=== PATIENT | female | born 1970 | race Caucasian/White ===

== ENCOUNTER 2016-07-27 19:26 | Emergency (ER) | payer SELFPAY ==
[2016-07-27] MEDS ORDERED: ASPIRIN 81 MG TABLET, CHEWABLE PO ONE (20:46)
[2016-07-27] MEDS ORDERED: ASPIRIN 81 MG TABLET, CHEWABLE ONE (20:48)
--- NOTE | 2016-07-27 20:49 | ER Document Report ---
ED Medical Screen (RME) - General Chief Complaint: Chest Pain > 30 Stated Complaint: CHEST PAIN Notes: 46-year-old female, intermittent sharp chest pain with no radiation in the center of her chest, symptoms been going on for days, no current symptoms, family history but no personal history of cardiac disease, nonsmoker. Past history of hypothyroidism, anxiety, hypertension. Postmenopausal reportedly. TRAVEL OUTSIDE OF THE [place] IN LAST 30 DAYS: No - Related Data Allergies/Adverse Reactions: citalopram Allergy (Verified 05/27/16 09:59) Home Medications: Current Home Medications Propranolol HCl [Inderal 20 mg Tablet] 20 mg PO DAILY 07/27/16 [History] Past Medical History Renal/ Medical History: Denies: Hx Peritoneal Dialysis Past Surgical History: Reports: Hx Kidney (Renal Surgery) - tumor - Immunizations Hx Diphtheria, Pertussis, Tetanus Vaccination: Yes Physical Exam - Vital signs Vitals: Temp Pulse Resp BP Pulse Ox 98.5 F 84 18 197/105 H 99 07/27/16 20:41 07/27/16 20:41 07/27/16 20:41 07/27/16 20:41 07/27/16 20:41 - Respiratory Chest status: Tender - Tender to anterior chest wall over the left sternal border - Cardiovascular Rhythm: Regular. No: Tachycardia Heart sounds: Normal auscultation, S1 appreciated, S2 appreciated Course - Vital Signs Vital signs: Temp Pulse Resp BP Pulse Ox 98.5 F 84 18 197/105 H 99 07/27/16 20:41 07/27/16 20:41 07/27/16 20:41 07/27/16 20:41 07/27/16 20:41
[2016-07-27 21:44] LABS: ABSOLUTE EOSINOPHILS # (AUTO) 0.1 10^3/uL (0.0-0.6); ABSOLUTE LYMPHOCYTES (AUTO) 2.8 10^3/uL (0.5-4.7); ABSOLUTE MONOCYTES (AUTO) 0.9 10^3/uL (0.1-1.4); ABSOLUTE NEUT (AUTO) 3.6 10^3/uL (1.7-8.2); BASOPHILS % (AUTO) 0.6 % (0-2); EOSINOPHILS % (AUTO) 1.8 % (0-6); HEMATOCRIT 39.2 % (36.0-47.0); HEMOGLOBIN 13.3 g/dL (12.0-15.5); HGB HCT DIFFERENCE 0.7; LYMPHOCYTES % (AUTO) 37.3 % (13-45); MEAN CORPUSCULAR HEMOGLOBIN 28.8 pg (27.0-33.4); MEAN CORPUSCULAR VOLUME 85 fl (80-97); MONOCYTES % (AUTO) 11.6 % (3-13); RED BLOOD COUNT 4.64 10^6/uL (3.72-5.28); RED CELL DISTRIBUTION WIDTH 13.2 % (11.5-14.0); SEGMENTED NEUTROPHILS % (AUTO) 48.7 % (42-78); WHITE BLOOD COUNT 7.5 10^3/uL (4.0-10.5)
[2016-07-27 22:05] LABS: ALANINE AMINOTRANSFERASE 43 U/L (9-52); ALBUMIN 4.9 g/dL (3.5-5.0); ALKALINE PHOSPHATASE 59 U/L (38-126); ANION GAP 12 (5-19); ASPARTATE AMINO TRANSFERASE 35 U/L (14-36); BILIRUBIN,TOTAL 0.6 mg/dL (0.2-1.3); BLOOD UREA NITROGEN 18 mg/dL (7-20); CALCIUM 9.5 mg/dL (8.4-10.2); CARBON DIOXIDE 28 mmol/L (22-30); CHLORIDE 104 mmol/L (98-107); CREATINE KINASE 79 U/L (30-135); CREATININE RESULT 0.76 mg/dL (0.52-1.25); GLUCOSE 81 mg/dL (75-110); POTASSIUM 4.5 mmol/L (3.6-5.0); SODIUM 144.3 mmol/L (137-145); TOTAL PROTEIN 7.6 g/dL (6.3-8.2)
[2016-07-27 22:15] LABS: CREATINE KINASE MB 0.57 ng/mL (<4.55); TROPONIN I < 0.012 ng/mL
--- NOTE | 2016-07-28 02:49 | ER Document Report ---
ED General - General Chief Complaint: Chest Pain > 30 Stated Complaint: CHEST PAIN Time seen by provider: 02:40 Notes: 46-year-old female, intermittent sharp chest pain with no radiation in the center of her chest, symptoms been going on for days, no current symptoms, family history but no personal history of cardiac disease, nonsmoker. Past history of hypothyroidism, anxiety, hypertension. Postmenopausal reportedly. TRAVEL OUTSIDE OF THE [place] IN LAST 30 DAYS: No - Related Data Allergies/Adverse Reactions: citalopram Allergy (Verified 05/27/16 09:59) Home Medications: Current Home Medications Propranolol HCl [Inderal 20 mg Tablet] 20 mg PO DAILY 07/27/16 [History] Past Medical History - General Information source: Patient - Social History Smoking Status: Never Smoker Frequency of alcohol use: None Drug Abuse: None Lives with: Family Family History: Reviewed & Not Pertinent Patient has suicidal ideation: No Patient has homicidal ideation: No Renal/ Medical History: Denies: Hx Peritoneal Dialysis Past Surgical History: Reports: Hx Kidney (Renal Surgery) - tumor - Immunizations Hx Diphtheria, Pertussis, Tetanus Vaccination: Yes Review of Systems - Review of Systems Constitutional: No symptoms reported EENT: No symptoms reported Cardiovascular: See HPI Respiratory: No symptoms reported Gastrointestinal: No symptoms reported Genitourinary: No symptoms reported Female Genitourinary: No symptoms reported Musculoskeletal: See HPI Skin: No symptoms reported Hematologic/Lymphatic: No symptoms reported Neurological/Psychological: No symptoms reported Physical Exam - Vital signs Vitals: Temp Pulse Resp BP Pulse Ox 98.5 F 84 18 197/105 H 99 07/27/16 20:41 07/27/16 20:41 07/27/16 20:41 07/27/16 20:41 07/27/16 20:41 Course - Re-evaluation Re-evalutation: Patient is very reproducible chest pain in the left sternal border and also anterior chest wall generally. Symptoms have been going on for days. EKG shows borderline left axis deviation, patient's blood pressure is not well- controlled, patient only takes propanolol for this which she started recently about a month ago. Patient will be given lisinopril in addition to this, patient states she has a close follow-up with family care for this to be adjusted. 2 sets of cardiac enzymes are unremarkable, chest x-ray unremarkable , laboratory workup unremarkable, patient asymptomatic on reevaluation except when her chest is pressed on. Discussed follow-up, return precautions. Patient states satisfaction and agreement. - Vital Signs Vital signs: Temp Pulse Resp BP Pulse Ox 97.8 F 78 18 149/102 H 99 07/28/16 03:23 07/28/16 03:23 07/28/16 03:23 07/28/16 03:23 07/28/16 03:23 - Laboratory Result Diagrams: 07/27/16 20:55 07/27/16 20:55 Discharge - Discharge Clinical Impression: Uncontrolled hypertension Chest pain Qualifiers: Chest pain type: unspecified Qualified Code(s): R07.9 - Chest pain, unspecified Condition: Stable Disposition: HOME, SELF-CARE Additional Instructions: Your tender chest wall and your normal workup and ongoing symptoms are reassuring. Apply heat to your chest wall, stay hydrated, consider over-the- counter anti-inflammatories. Please begin the lisinopril prescription, continue your propanolol, please follow-up closely to have your blood pressure reevaluated for further adjustment and treatment. Return to emergency department for any concerning or worsening symptoms. Prescriptions: Lisinopril 10 mg PO DAILY #30 tablet Referrals: [facility] [Primary Care Provider] - Follow up as needed
[2016-07-28 03:25] VITALS: BP 149/102
--- NOTE | 2016-07-28 11:25 | EKG REPORT ---
SEVERITY:- OTHERWISE NORMAL ECG - SINUS RHYTHM BORDERLINE LEFT AXIS DEVIATION : Confirmed by: Marcelino Blankenship 28-Jul-2016 11:24:42
== END 2016-07-28 03:25 | disposition home or self-care (01) ==
LOC: ER 19:26
DX: I10 Essential (primary) hypertension (principal); R07.9 Chest pain, unspecified; Z79.899 Other long term (current) drug therapy
CPT/HCPCS: 36415; 71010; 80053; 82550; 82553; 84484; 85025; 93005; 93010; 99285

== ENCOUNTER → 2016-08-23 | Outpatient (CLI) | payer OTHER ==
[2016-08-23 10:57] LABS: CHOLESTEROL 220.45 mg/dL (0-200); Direct HDL 42 mg/dL (>40); TRIGLYCERIDES 327 mg/dL (<150)
[2016-08-23 11:08] LABS: DIRECT LDL 129 mg/dL (<100)
[2016-08-23 11:13] LABS: VLDL CHOLESTEROL 65.4 mg/dL (10-31)
== END ==
LOC: CCC 09:34
DX: Z00.00 Encounter for general adult medical examination without abnormal findings (principal); I10 Essential (primary) hypertension; E03.9 Hypothyroidism, unspecified
CPT/HCPCS: 36415; 80061; 83036; 84443; 86376

== ENCOUNTER → 2016-08-29 | Outpatient (CLI) | payer OTHER | LOC: RAD 17:30 | DX: M54.5 Low back pain (principal); E06.3 Autoimmune thyroiditis | CPT/HCPCS: 76536 ==

== ENCOUNTER → 2016-08-29 | Outpatient (CLI) | payer OTHER | LOC: OD 12:46 | DX: M54.5 Low back pain (principal); E06.3 Autoimmune thyroiditis | CPT/HCPCS: 72110 ==

== ENCOUNTER → 2016-09-07 | Outpatient (CLI) | payer OTHER | LOC: WI 14:42 | DX: Z12.31 Encounter for screening mammogram for malignant neoplasm of breast (principal) | CPT/HCPCS: 77067; G0202 ==

== ENCOUNTER → 2016-09-12 | Outpatient (CLI) | payer OTHER ==
[2016-09-12 11:53] LABS: ABSOLUTE EOSINOPHILS # (AUTO) 0.2 10^3/uL (0.0-0.6); ABSOLUTE LYMPHOCYTES (AUTO) 1.8 10^3/uL (0.5-4.7); ABSOLUTE MONOCYTES (AUTO) 0.6 10^3/uL (0.1-1.4); ABSOLUTE NEUT (AUTO) 2.9 10^3/uL (1.7-8.2); BASOPHILS % (AUTO) 0.6 % (0-2); EOSINOPHILS % (AUTO) 2.8 % (0-6); HEMATOCRIT 38.6 % (36.0-47.0); HEMOGLOBIN 13.4 g/dL (12.0-15.5); HGB HCT DIFFERENCE 1.6; LYMPHOCYTES % (AUTO) 33.2 % (13-45); MEAN CORPUSCULAR HEMOGLOBIN 29.1 pg (27.0-33.4); MEAN CORPUSCULAR HGB CONC 34.6 g/dL (32.0-36.0); MEAN CORPUSCULAR VOLUME 84 fl (80-97); MONOCYTES % (AUTO) 10.1 % (3-13); RED BLOOD COUNT 4.59 10^6/uL (3.72-5.28); RED CELL DISTRIBUTION WIDTH 13.6 % (11.5-14.0); SEGMENTED NEUTROPHILS % (AUTO) 53.3 % (42-78); WHITE BLOOD COUNT 5.5 10^3/uL (4.0-10.5)
[2016-09-12 12:21] LABS: ALANINE AMINOTRANSFERASE 41 U/L (9-52); ALBUMIN 4.7 g/dL (3.5-5.0); ALKALINE PHOSPHATASE 60 U/L (38-126); ANION GAP 15 (5-19); ASPARTATE AMINO TRANSFERASE 27 U/L (14-36); BILIRUBIN,DIRECT 0.3 mg/dL (0.0-0.4); BILIRUBIN,TOTAL 0.6 mg/dL (0.2-1.3); BLOOD UREA NITROGEN 14 mg/dL (7-20); CALCIUM 10.2 mg/dL (8.4-10.2); CARBON DIOXIDE 26 mmol/L (22-30); CHLORIDE 104 mmol/L (98-107); CHOLESTEROL 204.86 mg/dL (0-200); Direct HDL 45 mg/dL (>40); GLUCOSE 91 mg/dL (75-110); POTASSIUM 4.9 mmol/L (3.6-5.0); SODIUM 144.7 mmol/L (137-145); TOTAL PROTEIN 7.5 g/dL (6.3-8.2); TRIGLYCERIDES 222 mg/dL (<150)
[2016-09-12 12:32] LABS: DIRECT LDL 116 mg/dL (<100)
[2016-09-12 12:33] LABS: VLDL CHOLESTEROL 44.4 mg/dL (10-31)
== END ==
LOC: LAB 11:38
PROVIDERS: ATTEND Psychiatry & Neurology Psychiatry
DX: F32.1 Major depressive disorder, single episode, moderate (principal); F41.0 Panic disorder [episodic paroxysmal anxiety]; F41.1 Generalized anxiety disorder
CPT/HCPCS: 36415; 80053; 80061; 84443; 85025

== ENCOUNTER 2016-11-11 18:30 | Emergency (ER) | payer OTHER ==
--- NOTE | 2016-11-11 19:10 | ER Document Report ---
ED Medical Screen (RME) - General Chief Complaint: Sore Throat Stated Complaint: SORE THROAT Time Seen by Provider: 11/11/16 18:57 Notes: Admits to sore throat for 1 week. I have greeted and performed a rapid initial assessment of this patient. A comprehensive ED assessment and evaluation of the patient, analysis of test results and completion of the medical decision making process will be conducted by additional ED providers. TRAVEL OUTSIDE OF THE [place] IN LAST 30 DAYS: No - Related Data Allergies/Adverse Reactions: citalopram Allergy (Verified 11/11/16 18:32) Past Medical History - Past Medical History Cardiac Medical History: Reports: Hx Hypercholesterolemia, Hx Hypertension Renal/ Medical History: Denies: Hx Peritoneal Dialysis Musculoskeltal Medical History: Reports Hx Arthritis Past Surgical History: Reports: Hx Kidney (Renal Surgery) - tumor, Hx Tonsillectomy - Immunizations Hx Diphtheria, Pertussis, Tetanus Vaccination: Yes Physical Exam - Vital signs Vitals: Temp Pulse Resp BP Pulse Ox 97.6 F 85 18 180/110 H 98 11/11/16 18:33 11/11/16 18:33 11/11/16 18:33 11/11/16 18:33 11/11/16 18:33 Course - Vital Signs Vital signs: Temp Pulse Resp BP Pulse Ox 97.6 F 85 18 180/110 H 98 11/11/16 18:33 11/11/16 18:33 11/11/16 18:33 11/11/16 18:33 11/11/16 18:33
--- NOTE | 2016-11-11 20:49 | ER Document Report ---
ED ENT - General Chief Complaint: Sore Throat Stated Complaint: SORE THROAT Time Seen by Provider: 11/11/16 18:57 Mode of Arrival: Ambulatory Information source: Patient Notes: 6-year-old female presents to ED for sore throat, runny nose, and pressure in her ears off and on for a week. TRAVEL OUTSIDE OF THE [place] IN LAST 30 DAYS: No - HPI Patient complains to provider of: Nose problem, Throat problem Onset: Last week Onset/Duration: Intermittent Quality of pain: Sharp Severity: Moderate Pain Level: 3 Context: Recent Illness Location of pain: Nose, Sinus, Throat Associated symptoms: Ear pain, Runny nose, Sinus drainage, Sore throat. denies : Fever Similar symptoms previously: Yes Recently seen / treated by doctor: No - Related Data Allergies/Adverse Reactions: citalopram Allergy (Verified 11/11/16 18:32) Past Medical History - General Information source: Patient - Social History Smoking Status: Never Smoker Cigarette use (# per day): No Chew tobacco use (# tins/day): No Smoking Education Provided: No Frequency of alcohol use: None Drug Abuse: None Occupation: [employer] Lives with: Alone Family History: Arthritis, CAD, DM, Hyperlipidemia, Hypertension, Malignancy, Thyroid Disfunction Patient has suicidal ideation: No Patient has homicidal ideation: No - Past Medical History Cardiac Medical History: Reports: Hx Hypercholesterolemia, Hx Hypertension Pulmonary Medical History: Reports: None EENT Medical History: Reports: None Neurological Medical History: Reports: None 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 Renal/ Medical History: Reports: Other - Renal tumor Malignancy Medical History: Reports: None GI Medical History: Reports: None Musculoskeltal Medical History: Reports Hx Arthritis Skin Medical History: Reports None Psychiatric Medical History: Reports: Hx Anxiety Traumatic Medical History: Reports: None Infectious Medical History: Reports: None Past Surgical History: Reports: Hx Kidney (Renal Surgery) - tumor, Hx Tonsillectomy - Immunizations Hx Diphtheria, Pertussis, Tetanus Vaccination: Yes Review of Systems - Review of Systems Constitutional: Recent illness EENT: Ear pain, Nose discharge, Sinus discharge, Throat pain Cardiovascular: No symptoms reported Respiratory: No symptoms reported Gastrointestinal: No symptoms reported Genitourinary: No symptoms reported Female Genitourinary: No symptoms reported Musculoskeletal: No symptoms reported Skin: No symptoms reported Hematologic/Lymphatic: No symptoms reported Neurological/Psychological: No symptoms reported -: Yes All other systems reviewed and negative Physical Exam - Vital signs Vitals: Temp Pulse Resp BP Pulse Ox 97.6 F 85 18 180/110 H 98 11/11/16 18:33 11/11/16 18:33 11/11/16 18:33 11/11/16 18:33 11/11/16 18:33 Interpretation: Normal - General General appearance: Appears well, Alert - HEENT Head: Normocephalic, Atraumatic Eyes: Normal Pupils: PERRL Ears: Normal External canal: Normal Tympanic membrane: Normal Sinus: Normal Nasal: Purulent discharge, Swelling Mouth/Lips: Normal Mucous membranes: Normal Pharynx: Post nasal drainage. No: Erythema, Exudate, Peritonsillar abscess, Tonsillar hypertrophy Neck: Normal - Respiratory Respiratory status: No respiratory distress Chest status: Nontender Breath sounds: Normal Chest palpation: Normal - Cardiovascular Rhythm: Regular Heart sounds: Normal auscultation Murmur: No - Abdominal Inspection: Normal Distension: No distension Bowel sounds: Normal Tenderness: Nontender Organomegaly: No organomegaly - Back Back: Normal, Nontender - Extremities General upper extremity: Normal inspection, Nontender, Normal color, Normal ROM , Normal temperature General lower extremity: Normal inspection, Nontender, Normal color, Normal ROM , Normal temperature, Normal weight bearing. No: Jatinder's sign - Neurological Neuro grossly intact: Yes Cognition: Normal Orientation: AAOx4 Randal Coma Scale Eye Opening: Spontaneous [place] Coma Scale Verbal: Oriented Randal Coma Scale Motor: Obeys Commands [place] Coma Scale Total: 15 Speech: Normal Motor strength normal: LUE, RUE, LLE, RLE Sensory: Normal - Psychological Associated symptoms: Normal affect, Normal mood - Skin Skin Temperature: Warm Skin Moisture: Dry Skin Color: Normal Course - Re-evaluation Re-evalutation: 11/11/16 21:49 Assessment consistent with upper respiratory infection and viral sore throat. A history of high blood pressure and has 1 more blood pressure medicine to take tonight. She also states she has white coat syndrome and always has blood pressure much higher when she is at the emergency room or the Dr. - Vital Signs Vital signs: Temp Pulse Resp BP Pulse Ox 98.5 F 67 18 168/111 H 97 11/11/16 21:03 11/11/16 21:03 11/11/16 21:03 11/11/16 21:03 11/11/16 21:03 Discharge - Discharge Clinical Impression: Sore throat (viral) URI (upper respiratory infection) Qualifiers: URI type: unspecified URI Qualified Code(s): J06.9 - Acute upper respiratory infection, unspecified Condition: Stable Disposition: HOME, SELF-CARE Additional Instructions: UPPER RESPIRATORY ILLNESS: You have a viral infection of the respiratory passages -- a "cold." This common infection causes nasal congestion, drainage, and often sore throat and cough. It is highly contagious. The disease usually lasts about 10 to 14 days. There is no "cure" for the viral infection -- it must run its course. If there is a complication, such as bacterial infection in the nose, sinuses, middle ear, or bronchial tubes, antibiotics may be required. The antibiotics won't affect the virus. Drink plenty of fluids. A humidifier may help. An expectorant medication or decongestant may make you more comfortable. Use acetaminophen or ibuprofen for fever or aches. See the doctor if fever persists over two days, if there is any significant worsening of your symptoms, or if you simply fail to improve as expected. SORE THROAT: Sore throats may be caused by viruses, bacteria, or fungi. Most are due to a virus, and must get better on their own. Bacterial sore throats, particularly those due to "strep," need treatment with antibiotics. If an antibiotic is prescribed, be sure to take the medication for a full 10 days. Failure to take the antibiotic can result in complications such as rheumatic fever. Sometimes, an injection of antibiotics is given instead of pills or liquid. This single "shot" is equal in effectiveness to the oral medication. To relieve symptoms, take acetaminophen for pain. Sip clear liquids frequently, or eat popsicles or ice chips. Anesthetic sprays or lozenges may help. Make sure the air in the room is not too dry. Avoid using decongestants or antihistamines. Call the doctor if there is no improvement in two days, or if you have difficulty breathing, increasing throat pain, high fever, rash, or frequent vomiting. Acetaminophen Acetaminophen may be taken for pain relief or fever control. It's much safer than aspirin, offering a wider range of "safe" dosages. It is safe during . Some brand names are Tylenol, Panadol, Datril, Anacin 3, Tempra, and Liquiprin. Acetaminophen can be repeated every four hours. The following are maximum recommended dosages: WEIGHT Dose Drops Elixir Chewable( 80mg) (LBS.) drprs=droppers tsp=teaspoon 6 40 mg .4 ml (1/2) 6-11 80 mg .8 ml (full) 1/2 tsp 1 tab 12-16 120 mg 1 1/2 drprs 3/4 tsp 1 1/2 tabs 17-23 160 mg 2 drprs 1 tsp 2 tabs 24-30 240 mg 3 drprs 1 1/2 tsp 3 tabs 30-35 320 mg 2 tsp 4 tabs 36-41 360 mg 2 1/4 tsp 4 1 /2 tabs 42-47 400 mg 2 1/2 tsp 5 tabs 48-53 480 mg 3 tsp 6 tabs 54-59 520 mg 3 1/4 tsp 6 1 /2 tabs 60-64 560 mg 3 1/2 tsp 7 tabs 65-70 600 mg 3 3/4 tsp 7 1 /2 tabs 71-76 640 mg 4 tsp 8 tabs 77-82 720 mg 4 1/2 tsp 9 tabs 83-88 800 mg 5 tsp 10 tabs >89 pounds or adults 650 mg to 900 mg Acetaminophen can be repeated every four hours. Maximum daily dose not to exceed 4000 mg. These maximum recommended dosages are slightly higher than the dosages written on the product container, but these dosages are very safe and well below the toxic dosage for acetaminophen. Ibuprofen Ibuprofen is an excellent, safe drug for pain control. In addition, it has potent antiinflammatory effects which are beneficial, especially in the treatment of injuries, arthritis, or tendonitis. It's best to take ibuprofen with food. Persons with ulcer disease or allergy to aspirin should notify their physician of this before taking ibuprofen. Take the medication exactly as prescribed. Don't take additional doses unless instructed to do so by your doctor. If you develop wheezing, shortness of breath, hives, faintness, stomach pain, vomiting, or dark black stools, return for re-evaluation at once. FOLLOW-UP CARE: If you have been referred to a physician for follow-up care, call the physician s office for an appointment as you were instructed or within the next two days. If you experience worsening or a significant change in your symptoms, notify the physician immediately or return to the Emergency Department at any time for re-evaluation. Forms: Elevated Blood Pressure, Return to Work Referrals: [facility] [Provider Group] - Follow up as needed
[2016-11-11 21:04] VITALS: BP 168/111
== END 2016-11-11 21:05 | disposition home or self-care (01) ==
LOC: ER 18:30
DX: J06.9 Acute upper respiratory infection, unspecified (principal); J02.9 Acute pharyngitis, unspecified; R09.89 Other specified symptoms and signs involving the circulatory and respiratory systems; H92.03 Otalgia, bilateral
CPT/HCPCS: 87070; 87880; 99283